=== PATIENT | female | born 1980 | race Caucasian/White ===

== ENCOUNTER 2022-10-12 10:08 | Outpatient (CLI) | payer BC ==
[2022-10-12 11:36] LABS: #Eosinphils 0.1 10x3/uL (0.0-0.5); #Monocytes 0.5 10x3/uL (0.0-1.1); #Neutrophils 5.2 10x3/uL (1.5-8.4); %Basophils 0.5 % (0.0-2.0); %Eosinophils 1.2 % (0.0-6.0); %Lymphocytes 21.8 % (18.0-47.0); %Monocytes 6.1 % (0.0-10.0); %Neutrophils 69.5 % (40.0-75.0); Hemoglobin 13.2 g/dL (12.0-15.5); Mean Corpuscular HGB CONC 33.1 g/dL (32.0-36.0); Mean Corpuscular Hemoglobin 29.1 pg (27.0-33.0); Mean Corpuscular Volume 87.9 fl (81.6-98.3); Platelet Count 288 10x3/uL (150-450); RBC Distribution Width 13.1 % (11.5-14.5); Red Blood Cell (RBC) Count 4.54 10x6/uL (3.90-5.03); White Blood Cell (WBC) Count 7.4 10x3/uL (3.5-10.5)
[2022-10-12 12:27] LABS: Anion Gap 13 mmol/L (10-20); BUN (Urea Nitrogen) 10 mg/dL (7.0-18.7); Calc. Creatinine Clearance 0 mL/min (70-130); Calcium 9.6 mg/dL (7.8-10.44); Carbon Dioxide 21 mmol/L (22-29); Chloride 106 mmol/L (98-107); Estimated GFR 96; Glucose 86 mg/dL (70-105); Sodium 136 mmol/L (136-145)
== END 2022-10-12 10:09 | disposition home or self-care (01) ==
LOC: LABBT 10:08
PROVIDERS: ATTEND Specialist
DX: Z01.812 Encounter for preprocedural laboratory examination (principal); K43.9 Ventral hernia without obstruction or gangrene
CPT/HCPCS: 80048; 85025

== ENCOUNTER 2022-10-15 10:24 | Day surgery (SDC) | payer BC ==
[2022-10-12 10:05] VITALS: BMI 26.5
[2022-10-15] MEDS ORDERED: Ketorolac Tromethamine 30 MG/ML VIAL ONE (10:55)
[2022-10-15] MEDS ORDERED: Acetaminophen 500 MG TAB ONE ×2 (10:55→10:59)
[2022-10-15] MEDS ORDERED: Midazolam HCl 2 mg/2 ml Vial ONE (11:43)
[2022-10-15] MEDS ORDERED: Famotidine/PF 20 mg/2ml Vial ONE ×2 (11:43→13:16)
[2022-10-15] MEDS ORDERED: Bupivacaine/Epinephrine 0.25% 30 ML VIAL ONE (13:07)
[2022-10-15] MEDS ORDERED: CEFAZOLIN 2 GM VIAL ONE (13:14)
[2022-10-15] MEDS ORDERED: Sodium Chloride 0.9% 100 ML ONE (13:14)
[2022-10-15] MEDS ORDERED: Meperidine HCl/PF 25 MG/ML VIAL ONE (13:16)
[2022-10-15] MEDS ORDERED: fentaNYL PF 100 MCG/2 ML SYRINGE ONE ×2 (13:16→17:24)
[2022-10-15] MEDS ORDERED: SUGAMMADEX SODIUM 200 MG/2 ML VIAL ONE ×2 (13:16→16:30)
[2022-10-15] MEDS ORDERED: Metoclopramide HCl 10 MG/2 ML VIAL ONE (14:16)
[2022-10-15] MEDS ORDERED: Phenylephrine 10 MG/ML VIAL ONE (14:16)
[2022-10-15] MEDS ORDERED: Dexamethasone 20 MG/5 ML VIAL ONE (14:16)
[2022-10-15] MEDS ORDERED: Rocuronium Bromide 10 MG/ML (10ML VIAL) ONE (14:16)
[2022-10-15] MEDS ORDERED: Ondansetron PF 4 MG/2 ML Vial ONE (14:16)
[2022-10-15] MEDS ORDERED: PROPOFOL 200 MG/20 ML VIAL ONE (14:16)
[2022-10-15] MEDS ORDERED: FENTANYL 50 MCG/ML 1 ML VIAL ONE ×2 (16:55→17:08)
[2022-10-15] MEDS ORDERED: HYDROcodone/Acetaminophen 5/325 mg Tablet ONE (17:38)
== END 2022-10-15 18:16 | disposition home or self-care (01) ==
LOC: SDC 10:24
PROVIDERS: ATTEND Specialist
PROC: 8E0W4CZ Robotic Assisted Procedure of Trunk Region, Percutaneous Endoscopic Approach (ICD-10-PCS; principal; 2022-10-15)
PROC: 0WUF4JZ Supplement Abdominal Wall with Synthetic Substitute, Percutaneous Endoscopic Approach (ICD-10-PCS; principal; 2022-10-15)
DX: K43.2 Incisional hernia without obstruction or gangrene (principal); K66.0 Peritoneal adhesions (postprocedural) (postinfection)
CPT/HCPCS: C1713; J1885; J2175; J2250; J3010; J3490; S0028